=== PATIENT | female | born 1975 | race Two or more races ===

== ENCOUNTER 2024-11-10 16:30 | Emergency (ER) | payer OTHER, SELFPAY ==
[2024-11-10 16:43] VITALS: BP 144/94; PULSE 102; RESP 20; TEMP 37.2; O2SAT 95; BMI 52.8
--- NOTE | 2024-11-10 16:56 | XR_ITS ---
Examination: Duplex scan of the lower extremity, unilateral left Date and time of exam: November 10, 2024 1704 hours INDICATIONS: Left knee pain and swelling beginning one month ago Technique: Duplex scan of the extremity veins using B-mode/grayscale imaging and Doppler spectral analysis and color flow Attention is directed to internal echogenicity, compression and augmentation involving these veins, color flow assessment, spectral analysis Findings: Major deep venous structures in the extremity demonstrate normal course and caliber. There is no evidence of deep vein thrombosis. Normal color flow and spectral analysis Impression: Negative for DVT..
--- NOTE | 2024-11-10 16:56 | PD.EDRME ---
Rapid Medical Screening Exam RME Arrival date/time: 11/10/24 16:30 48-year-old female presents to the emergency department today for complaints of left leg pain patient reports this pain started approximately 1month ago after taking a long drive patient has a current open Workmen's Comp. case secondary to left leg pain patient was sent by Dr. Quarles to rule DVT Chief Complaint: Extremity Problem,Nontraumatic Time Seen by Provider: 11/10/24 16:54 Vital signs: Vital Signs Temperature 99.0 F 11/10/24 16:43 Pulse Rate 102 H 11/10/24 16:43 Respiratory Rate 20 11/10/24 16:43 Blood Pressure 144/94 H 11/10/24 16:43 Pulse Oximetry (%) 95 11/10/24 16:43 Oxygen Delivery Method Room Air 11/10/24 16:43
--- NOTE | 2024-11-10 17:23 | PD.EDEXREM ---
ED Extremity Problem RME/HPI General Chief complaint: Extremity Problem,Nontraumatic Stated complaint: LEFT LEG SWELLING X 1 MONTH WITH INTERMITTENT PAIN Time Seen by Provider: 11/10/24 16:54 Arrival date/time: 11/10/24 16:30 48-year-old female presents to the emergency department today for complaints of left leg pain patient reports this pain started approximately 1month ago after taking a long drive patient has a current open Workmen's Comp. case secondary to left leg pain patient was sent by Dr. Ayers to rule DVT Limitations: no limitations RME / HPI RME / HPI Narrative: 11/10/24 16:30 48-year-old female presents to the emergency department today for complaints of left leg pain patient reports this pain started approximately 1month ago after taking a long drive patient has a current open Workmen's Comp. case secondary to left leg pain patient was sent by Dr. Quarles to rule DVT Related Data Previous Rx's ?Medication ?Instructions ?Recorded ipratropium bromide 21 mcg (0.03 2 spray intranasal BID #30 mL 08/27/19 %) nasal spray loratadine 10 mg tablet (Allergy 10 mg PO QDAY allergy symptoms #30 08/27/19 Relief (loratadine)) tabs Allergies Allergy/AdvReac Type Severity Reaction Status Date / Time No Known Allergies Allergy Verified 11/10/24 16:33 Review of Systems Review of Systems Systems Reviewed: All systems reviewed, normal except as documented Constitutional Constitutional: Reports system reviewed and no additional complaints, except as documented, Denies fever(s) and Denies headache(s) Eyes Eyes: Reports system reviewed and no additional complaints, except as documented and Denies blurry vision ENT Ears, Nose, Mouth, and Throat: Reports system reviewed and no additional complaints, except as documented, Denies headache(s), Denies nasal congestion and Denies nasal discharge Cardiovascular Cardiovascular: Reports system reviewed and no additional complaints, except as documented, Denies chest pain and Denies dyspnea Respiratory Respiratory: Reports system reviewed and no additional complaints, except as documented, Denies chest congestion, Denies cough and Denies dyspnea Gastrointestinal Gastrointestinal: Reports system reviewed and no additional complaints, except as documented and Denies abdominal pain Musculoskeletal Musculoskeletal: Reports system reviewed and no additional complaints, except as documented, Denies arthralgias, Denies back pain, Denies deformity, Denies numbness, Denies stiffness and Denies tingling Integumentary/Breasts Skin/Breast: Reports system reviewed and no additional complaints, except as documented and Denies rash Neurologic Neurologic: Reports system reviewed and no additional complaints, except as documented, Reports as per HPI, Denies headache(s), Denies numbness and Denies tingling Past Medical History Social History SMOKING STATUS: Never smoker ED Exam General Limitations: Present no limitations General appearance: Present alert and in no apparent distress Head Head exam: Present atraumatic Eye Eye exam: Present normal appearance, PERRL and EOMI ENT ENT exam: Present normal exam, normal oropharynx and mucous membranes moist Neck Neck exam: Present normal inspection, full ROM and trachea midline Chest Chest inspection: Present normal inspection and symmetric chest wall rise Respiratory Respiratory exam: Present normal lung sounds bilaterally Cardiovascular Cardiovascular exam: Present regular rate, normal rhythm and normal heart sounds Abdominal Exam Abdominal exam: Present soft and normal bowel sounds Extremities Exam Extremities exam: Present full ROM, tenderness and normal capillary refill; Absent pedal edema, joint swelling or calf tenderness Back Exam Back exam: Present normal inspection and full ROM Neurological Exam Neurological exam: Present alert, oriented X3 and CN II-XII intact Psychiatric Psychiatric exam: Present normal affect and normal mood Skin Skin exam: Present warm, dry, intact and normal color Course Quality Measures none Orders Category Date Time Status US venous doppler LE LT Stat Exams 11/10/24 16:56 Completed Vital Signs Vital signs: Vital Signs Temperature 99.0 F 11/10/24 16:43 Pulse Rate 102 H 11/10/24 16:43 Respiratory Rate 20 11/10/24 16:43 Blood Pressure 144/94 H 11/10/24 16:43 Pulse Oximetry (%) 95 11/10/24 16:43 Oxygen Delivery Method Room Air 11/10/24 16:43 O2 saturation 95% room air within normal limits Extremity Problem MDM Narrative MDM Narrative:: 48-year-old female presents to the emergency department today for complaints of left leg pain patient reports this pain started approximately 1month ago after taking a long drive patient has a current open Workmen's Comp. case secondary to left leg pain patient was sent by Dr. Ayers to rule DVT On exam patient well-appearing patient does not appear toxic no acute distress patient walks with steady gait On exam patient has no redness no warmth no swelling low suspicion for DVT Ultrasound obtained DVT is negative Patient instructed to follow-up with Workmen's Compensation provider for emergent concerns to return immediately Patient data External records reviewed:: [facility] previous records Clinical information provided by:: patient Social determinants that could affect healthcare access:: none Patient has the following chronic illnesses:: See history How is presenting disease/condition affected by chronic disease/condition?: uneffected by Evaluation data The following diagnostics were reviewed and interpreted by me:: radiology exam(s) Lab and/or radiology exams considered but not ordered:: Radiology obtain Interpretation Summary: Reviewed by me Medications / Prescriptions Medications or Prescriptions considered but not ordered:: Given Medication administrations:: Given Consultations Consultation(s) initiated? (list below): No Diagnosis Extremity Problem Differential Diagnosis: superficial thrombophlebitis, deep venous thrombosis of upper extremity and other (Leg pain) Most likely diagnosis given after review of the tests above:: Leg pain Admission Indicated Admission indicated?: not indicated Admission Request Was there a request for admission?: No Disposition Plan Disposition Plan: Discharge Discharge Attestation Discharge Attestation: The patient and all family members were given an opportunity to ask questions and understood the discharge instructions. Discharge instructions specifically effects, indications for sooner follow up or return to the emergency department, and the expected course of current diagnosis. Patient condition: Stable Discharge Plan Plan Patient Disposition: HOME (Self Care) Discharge Disposition comment: Stable Prescriptions/Referrals Prescriptions/Med Rec: No Action ipratropium bromide 0.03 % spray,non-aerosol 2 spray INTRANASAL BID Qty: 30 0RF Rx Instructions: administer into each nostril; wait 30 seconds between sprays loratadine [Allergy Relief (loratadine)] 10 mg tablet 10 mg PO QDAY Qty: 30 3RF Problem List Clinical Impression: Left leg pain Patient/Caregiver Discharge Instructions Education Materials: RICE Additional Instructions: Please follow up with Dr. Ayers as discussed for worsening symptoms return immediately Print Language: Micronesian Stand Alone Forms: Maritza Award Info., Patient Portal Info Letter PA/RELIEF OPERATOR Supervising Physician PA/RELIEF OPERATOR Supervising Physician: dr patterson
== END 2024-11-10 17:35 | disposition home or self-care (01) ==
PROVIDERS: Emergency Provider Emergency Medicine
DX: M79.605 Pain in left leg (principal)
CPT/HCPCS: 93971; 99284